=== PATIENT | male | born 1940 | race Caucasian/White ===

== ENCOUNTER → 2017-12-19 | Outpatient (CLI) | payer OTHER, BC ==
--- NOTE | 2017-12-19 15:39 | CT ---
HISTORY: Abnormal weight loss Study: CT abdomen and pelvis without contrast Comparison: None Technique: Multiple axial images of the abdomen and pelvis were obtained from the lung bases to the pubic symphy sis without the administration of IV contrast. Dose reduction techniques including automated exposur e control (AEC) and adjustment of mA and kV were utilized. Findings: Subsegmental atelectasis, scarring, and pleural calcifications are noted within the lung bases. The l iver, spleen, pancreas, adrenals, and kidneys are grossly unremarkable in appearance given the limita tions of this noncontrast exam. No CT evidence of hydronephrosis is identified. Evaluation of the sto mach, small bowel, and colon is limited without oral contrast. A tubular structure felt to represent the appendix within the right lower quadrant is grossly unremarkable. Scattered diverticula are seen within the descending and sigmoid colon. Small bilateral inguinal hernias containing fat are demonstr ated. The prostate is somewhat prominent heterogeneous in appearance and compresses along the posteri or inferior margin of the urinary bladder. The urinary bladder is otherwise grossly unremarkable. Deg enerative changes of the visualized spine are noted. IMPRESSION: Diverticulosis. Other findings as noted above. Reported By:
--- NOTE | 2017-12-19 15:39 | CT ---
HISTORY: COPD, abnormal weight loss Study: CT chest without contrast Comparison: None Technique: Multiple axial images of the chest were obtained from the thoracic inlet to the upper abdo men without the administration of IV contrast. Dose reduction techniques including automated exposure control (AEC) and adjustment of mA and kV were utilized. Findings: Scattered subcentimeter lymph nodes as measured across their short axis are seen within the mediastin um. Evaluation of the mediastinum, hilar regions, and vascular structures is limited without IV contr ast. There is no significant pericardial effusion observed. Atherosclerotic changes are seen within the visualized coronary artery is and aorta. Biapical scarring is noted. Pleural calcifications are seen within the upper and lower lobes bilaterally and may reflect prior exposure to asbestos. Correla te clinically Subsegmental atelectasis and/or scarring are seen within the right middle lobe, lingula , and both lower lobes. Otherwise no CT evidence of focal consolidation, pneumothorax, or pleural eff usion is identified. IMPRESSION: 1. Scattered areas of atelectasis, scarring, and pleural calcification without evidence of focal con solidation. Reported By:
== END | disposition home or self-care (01) | DRG 641 ==
LOC: RAD 13:57
PROVIDERS: ATTEND Internal Medicine
DX: R63.4 Abnormal weight loss (principal); J98.11 Atelectasis; J94.8 Other specified pleural conditions; J44.9 Chronic obstructive pulmonary disease, unspecified; K57.30 Diverticulosis of large intestine without perforation or abscess without bleeding
CPT/HCPCS: 71250; 74176

== ENCOUNTER 2019-06-04 11:00 | Inpatient (IN) ==
[2019-06-04] MEDS ORDERED: CATAPRES TAB 0.2 MG PO ONE (12:32)
[2019-06-04] MEDS ORDERED: ZOFRAN INJ 4 MG VIAL IVP ONE (12:43)
[2019-06-04] MEDS ORDERED: PROTONIX INJ 40 MG VIAL IVP ONE (12:43)
[2019-06-04] MEDS ORDERED: NS 500 ML IV 500 ML IV ONE (12:43)
[2019-06-04] MEDS ORDERED: ZOFRAN INJ 4 MG VIAL ONE (12:53)
[2019-06-04] MEDS ORDERED: PROTONIX INJ 40 MG VIAL ONE (12:53)
[2019-06-04] MEDS ORDERED: CATAPRES TAB 0.2 MG ONE (12:53)
[2019-06-04] MEDS ORDERED: NS 500 ML IV 500 ML ONE (12:54)
[2019-06-04 12:58] LABS: BASOPHILS % (AUTO) 0.4 % (0.2-1.0); EOSINOPHILS % (AUTO) 0.1 % (0.9-2.9); HEMATOCRIT 43.2 % (42.0-54.0); HEMOGLOBIN 14.7 g/dL (13.5-18.0); LYMPHOCYTES # (AUTO) 0.7 X10^3/uL (1.3-2.9); LYMPHOCYTES % (AUTO) 6.2 % (21.0-51.0); MEAN CORPUSCULAR HEMOGLOBIN 32.4 pg (27.0-34.0); MEAN CORPUSCULAR HGB CONC 34.1 g/dL (33.0-35.0); MEAN PLATELET VOLUME 8.2 fL (7.4-11.0); MONOCYTES # (AUTO) 0.7 x10^3/uL (0.3-0.8); MONOCYTES % (AUTO) 6.1 % (0.0-13.0); NEUTROPHILS # (AUTO) 10.5 x10^3/uL (2.2-4.8); NEUTROPHILS % (AUTO) 87.2 % (42.0-75.0); PLATELET COUNT 338 X10^3/uL (150.0-450.0); RED BLOOD COUNT 4.55 X10^6/uL (4.7-6.0)
--- NOTE | 2019-06-04 13:34 | DR.GENAD ---
HPI Time Seen Time Seen by Provider: 06/04/19 12:32 PCP Primary Care Physician: DR FOFANA Complaint/Symptoms Chief Complaint Doctors Comments: pt presented for fall and confusion. Pt was reported by family last night to be his normal self. he lives with his and uses a walker/cane for assistance. His reports he sleeps in separate room and this morning was found on the floor. Pt is unsure how he got on the floor but thinks he slipped getting out of bed. Denies any CP or SOB. he has COPD and wears home O2 2L NC. He reports having abdominal pain with reflux, back pain, nausea and left pelvic pain. he had prior lt hip arthroplasty. Pt currently on ASA. he has not taken his home BP medications today. Chief Complaint:: PT'S DAUGHTER STATES THAT WHEN HER MOTHER CHECKED ON PT THIS MORNING SHE FOUND HIM IN THE FLOOR CONFUSED. UNSURE OF WHEN OR IF THE PT FELL. CURRENTLY THE PT DENIES PAIN AND IS ORIENTED TO PERSON AND PLACE BUT CONFUSED TO WHY HE IS HERE Nurses notes reviewed Nurses Notes Review: Yes Source History Provided: Patient Mode of Arrival Mode of Arrival: Wheelchair Timing Onset of Chief Complaint: 06/04/19 Came on: On Awakening Duration Duration: Intermittent Duration: Days (1) Severity Severity: Mild Modifying Factors Worsens:: nothing Improves:: nothing Associated Signs and Symptoms Associated Signs and Symptoms: abd pain, back pian, pelvic painabd pain, back pian, pelvic pain PMH PMH Past Medical History: Yes Past Medical History: Coronary Artery Disease, Diabetes, Hypertension and Hypothyroidism Past Medical History Comment: ABESTOSIS Past Surgical History: Yes Surgical History: Angioplasty/Stents, CABG/Valve Surgery and Ortho Surgery Family History History of Family Medical Conditions: No (UNKNOWN) Family Medical History: Diabetes Mellitus, Cancer, [place], Coronary Artery Disease and Hypertension Social History Does patient currently use any type of tobacco product: No Have you used tobacco products in the last 12 months: No Type of Tobacco Use: None Does any household member use tobacco: No Alcohol Use: None Do you use any recreational Drugs:: No Lives With: Spouse Lives Where: Home infectious screening In the last 2 months have you had wt loss of >10#?: NO Have you had fever, night sweats or hemotysis?: No Have you traveled outside the country in the last 6 months?: No Isolation: Standard ROS Review of Systems Constitutional: negative Chills, Fever, Weakness and Loss of Appetite Eyes: negative Blurred Vision ENTM: negative Nose Congestion Respiratoy: negative Short of Breath Cardiovascular: negative Chest Pain and Edema Gastrointestinal/Abdominal: Abdominal Pain; negative Nausea and Vomiting Genitourinary: negative Dysuria and Hematuria Neurological: negative Weakness and Speech Problem Musculoskeletal: Back Pain and Pelvis Hematologic/Lymphatic: Easy Bruising Endocrine: negative Unexplained Weight Gain, Unexplained Weight Loss and Decreased Appetite Psychiatric: negative Depression and Hallucinations All Other Systems: Reviewed and Negative PE Vital Signs Vitals: Temperature 97.9 F Pulse Rate 60 Respiratory Rate 20 Blood Pressure [Right Arm] 190/86 Blood Pressure 226/89 O2 Sat by Pulse Oximetry 91 General Limitations: No Limitations General Appearance: Alert and In No Apparent Distress Head Head Exam: Normal Inspection, Atraumatic and Normocephalic Eyes Eye exam: Normal Appearance, PERRL and EOMI; negative Scleral Icterus ENT ENT Exam: Normal Exam, Normal Oropharynx and Mucous Membranes Moist External Ear Exam: Other (artie hearing aid) Nose Exam: Normal Nose Exam Mouth Exam: Normal Inspection Throat Exam: Normal Inspection Neck Neck Exam: Normal Inspection and Full ROM; negative Tenderness, Meningismus and Lymphadenopathy Respiratory Respiratory Exam: Normal Lung Sounds Bilat and Other (on 2L NC ) Respiratory Exam: Bilateral: Clear to Auscultation Cardiovascular Cardiovascular Exam: Regular Rate, Normal Rhythm and Normal Heart Sounds Abdominal Exam Abdominal Exam: Normal Inspection, Normal Bowel Sounds, Soft and Tenderness; negative Distention and Pulsatile Mass Abdominal Tenderness: Epigastrium Extremities Extremities Exam: Normal Inspection, Tenderness (left pelvic) and Normal Capillary Refill; negative Edema and Calf Tenderness Back Back Exam: Normal Inspection; negative Tenderness and Vertebral Tenderness Neurologic Neurological Exam: Alert, Oriented X3, Normal Gait and Reflexes Normal; negative Motor Sensory Deficit Psychiatric Psychiatric Exam: Normal Affect and Normal Mood Skin Skin Exam: Warm, Dry, Intact and Normal Color Front/Back of Body, Lg ([place]): 1. abrasion MDM Additional Information Additional Information Obtained From: Old Records Differential Diagnosis Differential Diagnosis: AAA, abd pain, fall, CHI, ICH, pelvic fracture, reflux, gastritis COURSE Reevaluation 1st: Unchanged (BP still elevated. Will given Hydralazine. Pt would like to try prune juice for constipation. Will continue IVF hydration. Awaiting retun call from Dr. Fofana PCP.) 2nd: Improved (BP improved. Still has not voided. Will i/o cath. ) Consultation Consultation Comments: 15:[address] Fofana and will admit and see in the hospital. Education/Counseling Education/Counseling: Patient, Family, Education and Counseling Educated On: Treatment, Diagnosis, Prognosis and Needs for Follow Up ROR Labs Reviewed Laboratory Results Reviewed?: Yes Result Diagrams: 06/04/19 12:05 06/04/19 13:32 Laboratory: WBC 12.0 X10^3/uL (3.6-10.0) H 06/04/19 12:05 RBC 4.55 X10^6/uL (4.7-6.0) L 06/04/19 12:05 Hgb 14.7 g/dL (13.5-18.0) 06/04/19 12:05 Hct 43.2 % (42.0-54.0) 06/04/19 12:05 MCV 95.0 fL (80.0-100.0) 06/04/19 12:05 MCH 32.4 pg (27.0-34.0) 06/04/19 12:05 MCHC 34.1 g/dL (33.0-35.0) 06/04/19 12:05 RDW 13.0 % (11.6-16.5) 06/04/19 12:05 Plt Count 338 X10^3/uL (150.0-450.0) 06/04/19 12:05 MPV 8.2 fL (7.4-11.0) 06/04/19 12:05 Neut % (Auto) 87.2 % (42.0-75.0) H 06/04/19 12:05 Lymph % (Auto) 6.2 % (21.0-51.0) L 06/04/19 12:05 [place] % (Auto) 6.1 % (0.0-13.0) 06/04/19 12:05 Eos % (Auto) 0.1 % (0.9-2.9) L 06/04/19 12:05 Baso % (Auto) 0.4 % (0.2-1.0) 06/04/19 12:05 Neut # (Auto) 10.5 x10^3/uL (2.2-4.8) H 06/04/19 12:05 Lymph # (Auto) 0.7 X10^3/uL (1.3-2.9) L 06/04/19 12:05 [place] # (Auto) 0.7 x10^3/uL (0.3-0.8) 06/04/19 12:05 Eos # (Auto) 0.0 x10^3/uL (0.0-0.2) 06/04/19 12:05 Baso # (Auto) 0.0 X10^3/uL (0.0-0.1) 06/04/19 12:05 Absolute Nucleated RBC 0.0 /100WBC 06/04/19 12:05 PT 14.2 SECONDS (11.8-14.3) 06/04/19 13:32 INR Target Range - 06/04/19 13:32 INR 1.14 (0.8-1.3) 06/04/19 13:32 Sodium 136 mmol/L (136-145) 06/04/19 13:32 Corrected Sodium 142 mmol/L (136-145) 06/04/19 13:32 Potassium 5.2 mmol/L (3.5-5.1) H 06/04/19 13:32 Chloride 102 mmol/L (98-107) 06/04/19 13:32 Carbon Dioxide 21.7 mmol/L (21-32) 06/04/19 13:32 BUN 37 mg/dL (7-18) H 06/04/19 13:32 Creatinine 2.37 mg/dL (0.70-1.30) H 06/04/19 13:32 Est GFR (MDRD) Af Amer 34 (>60) L 06/04/19 13:32 Est GFR (MDRD) Non-Af 28 (>60) L 06/04/19 13:32 Glucose 335 mg/dL (65-99) H 06/04/19 13:32 Calcium 8.4 mg/dL (8.5-10.1) L 06/04/19 13:32 Creatine Kinase 182 Units/L (39-308) 06/04/19 13:32 Troponin I < 0.02 ng/mL (0-1.5) 06/04/19 13:32 Acetone, Semi-Quant Negative (NEGATIVE) 06/04/19 13:32 Other Results Comments: WBC 12k, K 5.2 Cr 2.37 BUN 37 glu 335, Trop negative CPK 182, acetone neg CT head: naf XRAY XRAY Interpreted by: Radiologist and Self XRAY Findings: Abd series: chest NAF, constipation EKG Rate: 60 [place]: LAD Rhythm: NSR Block: None Hypertrophy: None ST: Nonsp Opioid Opioid Risk Tool Age ([place] box if 16-45): No History of Preadolescent Sexual Abuse: No Total: 0 Total Score Risk Category: Low Risk Copyright: [facility] predicting aberrant behaviors Diagnosis Discharge Problem: Acute kidney injury superimposed on CKD, Hypertensive urgency Hyperglycemia due to type 2 diabetes mellitus Qualifiers: Diabetes mellitus prison insulin use: with intermission coordinator use Qualified Code(s): E11.65 - Type 2 diabetes mellitus with hyperglycemia Fall Qualifiers: Encounter type: initial encounter Qualified Code(s): W19.XXXA - Unspecified fall, initial encounter Constipation Qualifiers: Constipation type: unspecified constipation type Qualified Code(s): K59.00 - Constipation, unspecified Instructions Forms: Excuse From Work ADDITIONAL NOTES Additional Notes Additional Notes: I have personally reviewed your medications, lab results, imaging and time was spent discussion results. Patient educated on their health issue. They verbalized their understanding and agreed with plan of care. Condition: Stable Disposition: admit
[2019-06-04] MEDS ORDERED: LEVSIN/MAALOX/LIDOC VISC PO ONE (13:40)
[2019-06-04] MEDS ORDERED: LEVSIN/MAALOX/LIDOC VISC ONE (13:42)
--- NOTE | 2019-06-04 13:48 | CT ---
History: Fall Study: CT head without contrast. Sagittal and coronal reformations were provided. Comparison: MRI brain dated November 07, 2015 Findings: The ventricles and sulci are moderately severely enlarged, and unchanged, without mass effect. There is an old unchanged right basal ganglial putamen lacunar infarct. There is no intracranial hemorrhage or mass or edema. There is mild to moderate diffuse patchy periventricular white matter low attenuation. The calvarium is intact. The paranasal sinuses are grossly clear. Impression: 1. 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 No acute intracranial disease demonstrated 3. Mild to moderate diffuse periventricular white matter small-vessel disease. Reported By:
--- NOTE | 2019-06-04 13:49 | RAD ---
History: Fall Study: AP pelvis Comparison: September 30, 2018 Findings: There is a left hip prosthesis well-seated. No acute fracture is demonstrated. The right hip is unremarkable. There is no lytic or blastic lesion. The bony pelvis is intact. Impression: No acute disease Reported By:
--- NOTE | 2019-06-04 13:53 | RAD ---
History: Fall and abdominal pain Study: Acute abdominal series Comparison: September 2018 Findings: There is limited inspiration of grossly clear lungs. There is apical pleural calcification on the left. The heart size is prominent status post CABG. The bowel gas pattern is unremarkable except for a large amount of formed stool throughout the entire colon to the rectum. There is a partially visualized left hip prosthesis. No urinary tract calcification is demonstrated. There is no free air. Impression: Probable constipation Reported By:
[2019-06-04 13:55] LABS: BLOOD UREA NITROGEN 37 mg/dL (7-18); CALCIUM 8.4 mg/dL (8.5-10.1); CARBON DIOXIDE 21.7 mmol/L (21-32); CHLORIDE 102 mmol/L (98-107); COR NA(FOR HYPERGLY) 142 mmol/L (136-145); CREATINE KINASE 182 Units/L (39-308); CREATININE 2.37 mg/dL (0.70-1.30); SODIUM 136 mmol/L (136-145); TROPONIN I < 0.02 ng/mL (0-1.5); eGFR NON BLACK RACES 28 (>60)
[2019-06-04] MEDS ORDERED: NS 1000 ML 1,000 ML IV ONE (14:04)
[2019-06-04] MEDS ORDERED: FLEET ENEMA ADULT PR ONE (14:05)
[2019-06-04] MEDS ORDERED: APRESOLINE INJ 20 MG VIAL IVP ONE (14:05)
[2019-06-04] MEDS ORDERED: HumuLIN R IV ONE (14:05)
[2019-06-04] MEDS ORDERED: APRESOLINE INJ 20 MG VIAL ONE (14:13)
[2019-06-04] MEDS ORDERED: HumuLIN R ONE ×2 (14:14→17:30)
[2019-06-04] MEDS ORDERED: NS 1000 ML 1,000 ML ONE (15:46)
[2019-06-04] MEDS: NS 1000 ML 1,000 ML IV SCH (17:24)
[2019-06-04] MEDS ORDERED: HumuLIN R SUBCUT PRN (17:25)
[2019-06-04 17:49] VITALS: BMI 24.7
[2019-06-04 18:27] LABS: BILIRUBIN,URINE NEGATIVE (NEGATIVE); BLOOD/HEMOGLOBIN,URINE 3+ (NEGATIVE); GLUCOSE, URINE 3+ (NEGATIVE); KETONES,URINE NEGATIVE (NEGATIVE); LEUKOCYTE ESTERASE ,URINE NEGATIVE (NEGATIVE); NITRITES,URINE NEGATIVE (NEGATIVE); PROTEIN,URINE 4+ (NEGATIVE); UROBILINOGEN,URINE NORMAL (NORMAL)
[2019-06-04 18:28] LABS: APPEARANCE,URINE HAZY (CLEAR); COLOR,URINE YELLOW (YELLOW)
[2019-06-04 18:36] LABS: AMORPHOUS SEDIMENT,UR 1+ /HPF (NEGATIVE); BACTERIA,URINE TRACE /HPF (NEGATIVE); HYALINE CASTS, URINE FEW /LPF (NEGATIVE); MUCUS,URINE FEW /HPF (NEGATIVE); SQUAMOUS EPITHELIAL CELL,UR FEW /HPF (NEGATIVE)
[2019-06-04] MEDS ORDERED: MILK OF MAGNESIA PO PRN (19:49)
[2019-06-04] MEDS ORDERED: COLACE CAP 100 MG PO PRN (19:49)
[2019-06-04] MEDS ORDERED: SNACK - Diabetic Appropriate PO SCH ×2 (20:00)
[2019-06-04] MEDS: DUONEB 0.5 MG/3 MG IN SCH (20:29)
[2019-06-04] MEDS ORDERED: ROBITUSSIN DM PO PRN (20:50)
[2019-06-04] MEDS: COREG TAB 6.25 MG PO SCH (20:53)
[2019-06-04] MEDS: HumuLIN R SUBCUT PRN (22:00)
[2019-06-05] MEDS: DUONEB 0.5 MG/3 MG IN SCH ×6 (05:00→22:15)
[2019-06-05 05:04] LABS: BASOPHILS # (AUTO) 0.1 X10^3/uL (0.0-0.1); BASOPHILS % (AUTO) 0.7 % (0.2-1.0); EOSINOPHILS # (AUTO) 0.8 x10^3/uL (0.0-0.2); EOSINOPHILS % (AUTO) 7.9 % (0.9-2.9); HEMATOCRIT 37.2 % (42.0-54.0); LYMPHOCYTES # (AUTO) 1.1 X10^3/uL (1.3-2.9); LYMPHOCYTES % (AUTO) 10.6 % (21.0-51.0); MEAN CORPUSCULAR HEMOGLOBIN 32.5 pg (27.0-34.0); MEAN CORPUSCULAR HGB CONC 34.2 g/dL (33.0-35.0); MEAN PLATELET VOLUME 8.1 fL (7.4-11.0); MONOCYTES # (AUTO) 1.2 x10^3/uL (0.3-0.8); MONOCYTES % (AUTO) 11.2 % (0.0-13.0); NEUTROPHILS # (AUTO) 7.3 x10^3/uL (2.2-4.8); NEUTROPHILS % (AUTO) 69.6 % (42.0-75.0); PLATELET COUNT 269 X10^3/uL (150.0-450.0); RED BLOOD COUNT 3.92 X10^6/uL (4.7-6.0); RED CELL DISTRIBUTION WIDTH 13.2 % (11.6-16.5); WHITE BLOOD COUNT 10.5 X10^3/uL (3.6-10.0)
[2019-06-05 05:08] LABS: BLOOD UREA NITROGEN 33 mg/dL (7-18); CALCIUM 7.9 mg/dL (8.5-10.1); CARBON DIOXIDE 22.5 mmol/L (21-32); CHLORIDE 108 mmol/L (98-107); CREATININE 2.22 mg/dL (0.70-1.30); SODIUM 141 mmol/L (136-145); eGFR NON BLACK RACES 30 (>60)
[2019-06-05 05:11] LABS: HEMOGLOBIN 12.7 g/dL (13.5-18.0)
[2019-06-05] MEDS: NS 1000 ML 1,000 ML IV SCH ×2 (06:06→21:08)
[2019-06-05] MEDS: SNACK - Diabetic Appropriate PO SCH ×2 (07:12→20:28)
[2019-06-05] MEDS: MILK OF MAGNESIA PO SCH ×4 (08:48→21:08)
[2019-06-05] MEDS: CRESTOR TAB 10 MG PO SCH (08:48)
[2019-06-05] MEDS: ZETIA TAB 10 MG PO SCH (08:49)
[2019-06-05] MEDS: SYNTHROID 50 mcg TAB PO SCH (08:49)
[2019-06-05] MEDS: SINGULAIR TAB 10 MG PO SCH (08:49)
[2019-06-05] MEDS: LASIX PO SCH (08:49)
[2019-06-05] MEDS: COREG TAB 6.25 MG PO SCH ×2 (08:50→21:08)
[2019-06-05] MEDS: COLACE CAP 100 MG PO SCH ×2 (08:50→21:08)
[2019-06-05] MEDS: MIRALAX POWDER (1 DOSE 17 G) PO SCH (08:51)
[2019-06-05] MEDS: PLAVIX PO SCH (08:57)
[2019-06-05] MEDS ORDERED: PHARMACY CONSULT - DOSE _____ XX SCH (09:00)
--- NOTE | 2019-06-05 09:04 | US ---
History: Chronic kidney disease and acute kidney injury Study: Ultrasound of the kidneys Comparison: None Findings: The right kidney measures 8.97 x 4.38 x 5.09 cm with cortical thickness of 1.39 cm. The left kidney measures 8.1 x 6.28 x 4.89 cm with cortical thickness of 1.32 cm. There is no hydronephrosis or renal mass. The urinary bladder is unremarkable. The prostate is not appear to be enlarged. There is mildly increased diffuse echogenicity of renal cortex. Impression: Echogenic renal cortex compatible with a diffuse renal cortical disease. Reported By:
[2019-06-05] MEDS: ZyrTEC TAB 10 MG PO SCH (10:56)
[2019-06-05] MEDS: TYLENOL 325 MG TAB PO PRN (16:01)
[2019-06-05] MEDS: HumuLIN R SUBCUT PRN (16:44)
[2019-06-05] MEDS: LOVENOX INJ 30 MG SYR SC SCH (21:08)
[2019-06-06 05:17] LABS: BASOPHILS # (AUTO) 0.1 X10^3/uL (0.0-0.1); BASOPHILS % (AUTO) 0.7 % (0.2-1.0); EOSINOPHILS % (AUTO) 11.3 % (0.9-2.9); HEMATOCRIT 38.2 % (42.0-54.0); HEMOGLOBIN 13.1 g/dL (13.5-18.0); LYMPHOCYTES % (AUTO) 11.1 % (21.0-51.0); MEAN CORPUSCULAR HEMOGLOBIN 32.4 pg (27.0-34.0); MEAN CORPUSCULAR HGB CONC 34.2 g/dL (33.0-35.0); MEAN CORPUSCULAR VOLUME 94.8 fL (80.0-100.0); MEAN PLATELET VOLUME 7.9 fL (7.4-11.0); MONOCYTES # (AUTO) 0.8 x10^3/uL (0.3-0.8); MONOCYTES % (AUTO) 9.2 % (0.0-13.0); NEUTROPHILS # (AUTO) 5.8 x10^3/uL (2.2-4.8); NEUTROPHILS % (AUTO) 67.7 % (42.0-75.0); PLATELET COUNT 234 X10^3/uL (150.0-450.0); RED BLOOD COUNT 4.03 X10^6/uL (4.7-6.0); RED CELL DISTRIBUTION WIDTH 13.1 % (11.6-16.5); WHITE BLOOD COUNT 8.5 X10^3/uL (3.6-10.0)
[2019-06-06 05:29] LABS: ALBUMIN 2.5 g/dL (3.4-5.0); CARBON DIOXIDE 24.8 mmol/L (21-32); COR CA(FOR HYPOALB) 9.2 mg/dL (8.5-10.1); CREATININE 1.99 mg/dL (0.70-1.30)
[2019-06-06] MEDS: DUONEB 0.5 MG/3 MG IN SCH ×4 (05:35→21:12)
[2019-06-06] MEDS: TYLENOL 325 MG TAB PO PRN ×2 (05:59→17:30)
[2019-06-06] MEDS: ZyrTEC TAB 10 MG PO SCH (09:20)
[2019-06-06] MEDS: CRESTOR TAB 10 MG PO SCH (09:20)
[2019-06-06] MEDS: LASIX PO SCH (09:21)
[2019-06-06] MEDS: COREG TAB 6.25 MG PO SCH ×2 (09:22→21:35)
[2019-06-06] MEDS: SYNTHROID 50 mcg TAB PO SCH (09:23)
[2019-06-06] MEDS: COLACE CAP 100 MG PO SCH ×2 (09:23→21:34)
[2019-06-06] MEDS: PLAVIX PO SCH (09:24)
[2019-06-06] MEDS: SINGULAIR TAB 10 MG PO SCH (09:24)
[2019-06-06] MEDS: ZETIA TAB 10 MG PO SCH (09:25)
[2019-06-06] MEDS: MILK OF MAGNESIA PO SCH ×4 (09:27→21:37)
[2019-06-06] MEDS: MIRALAX POWDER (1 DOSE 17 G) PO SCH (09:27)
[2019-06-06] MEDS: NS 1000 ML 1,000 ML IV SCH ×2 (09:35→23:30)
[2019-06-06] MEDS: HumuLIN R SUBCUT PRN (11:47)
[2019-06-06] MEDS: SNACK - Diabetic Appropriate PO SCH (21:32)
[2019-06-06] MEDS: LOVENOX INJ 30 MG SYR SC SCH (21:33)
[2019-06-07] MEDS: TYLENOL 325 MG TAB PO PRN (01:56)
[2019-06-07] MEDS: NS 1000 ML 1,000 ML IV SCH ×3 (01:57→14:48)
[2019-06-07 05:04] LABS: BASOPHILS % (AUTO) 0.6 % (0.2-1.0); EOSINOPHILS # (AUTO) 0.8 x10^3/uL (0.0-0.2); EOSINOPHILS % (AUTO) 12.9 % (0.9-2.9); HEMOGLOBIN 12.8 g/dL (13.5-18.0); LYMPHOCYTES # (AUTO) 1.1 X10^3/uL (1.3-2.9); LYMPHOCYTES % (AUTO) 16.6 % (21.0-51.0); MEAN CORPUSCULAR HEMOGLOBIN 32.6 pg (27.0-34.0); MEAN CORPUSCULAR HGB CONC 34.5 g/dL (33.0-35.0); MEAN CORPUSCULAR VOLUME 94.6 fL (80.0-100.0); MEAN PLATELET VOLUME 8.1 fL (7.4-11.0); MONOCYTES # (AUTO) 0.7 x10^3/uL (0.3-0.8); MONOCYTES % (AUTO) 11.3 % (0.0-13.0); NEUTROPHILS # (AUTO) 3.8 x10^3/uL (2.2-4.8); NEUTROPHILS % (AUTO) 58.6 % (42.0-75.0); PLATELET COUNT 217 X10^3/uL (150.0-450.0); RED BLOOD COUNT 3.91 X10^6/uL (4.7-6.0); RED CELL DISTRIBUTION WIDTH 12.8 % (11.6-16.5); WHITE BLOOD COUNT 6.4 X10^3/uL (3.6-10.0)
[2019-06-07 05:16] LABS: ALBUMIN 2.3 g/dL (3.4-5.0); CALCIUM 7.9 mg/dL (8.5-10.1); CARBON DIOXIDE 23.9 mmol/L (21-32); COR CA(FOR HYPOALB) 9.3 mg/dL (8.5-10.1); TOTAL PROTEIN 5.9 g/dL (6.4-8.2)
[2019-06-07] MEDS: DUONEB 0.5 MG/3 MG IN SCH ×3 (05:25→21:16)
[2019-06-07] MEDS: COLACE CAP 100 MG PO SCH ×2 (08:22→21:14)
[2019-06-07] MEDS: ZyrTEC TAB 10 MG PO SCH (08:23)
[2019-06-07] MEDS: COREG TAB 6.25 MG PO SCH ×2 (08:23→21:14)
[2019-06-07] MEDS: CRESTOR TAB 10 MG PO SCH (08:23)
[2019-06-07] MEDS: SYNTHROID 50 mcg TAB PO SCH (08:23)
[2019-06-07] MEDS: SINGULAIR TAB 10 MG PO SCH (08:24)
[2019-06-07] MEDS: LASIX PO SCH (08:24)
[2019-06-07] MEDS: ZETIA TAB 10 MG PO SCH (08:24)
[2019-06-07] MEDS: PLAVIX PO SCH (08:28)
[2019-06-07] MEDS: MIRALAX POWDER (1 DOSE 17 G) PO SCH (08:29)
[2019-06-07] MEDS: MILK OF MAGNESIA PO SCH ×4 (08:29→21:19)
[2019-06-07 09:33] LABS: CKMB % 1.7 % (<4); CREATINE KINASE MB 2.1 ng/mL (0-4.0); TROPONIN I 0.02 ng/mL (0-1.5)
[2019-06-07] MEDS ORDERED: MAALOX or MYLANTA PO PRN (12:16)
[2019-06-07] MEDS ORDERED: MAALOX or MYLANTA ONE (12:20)
--- NOTE | 2019-06-07 12:37 | DR.H&P ---
H&P - History & Physical for Day of: H&P Date: 06/04/19 - Chief Complaint Chief Complaint: AMS, FALLS, WEAKNESS - History of Present Illness History of Present Illness: IS A 78 YEAR OLD PATIENT OF OURS WHO PRESENTED TO THE ER WITH REPORTS OF ALTERED MENTAL STATUS FOLLOWING A FALL. PATIENTS SPOUSE REPORTS THAT SHE IS UNSURE OF WHEN THE FALL TOOK PLACE. SHE FOUND HIM IN THE FLOOR UPON AWAKENING THIS MORNING. HE WAS LAST SEEN NORMAL BEFORE BED LAST NIGHT. PATIENT DENIES CHEST PAIN OR SHORTNESS OF BREATH. HE HAS A HISTORY OF COPD AND AN EXTENSIVE CARDIAC HISTORY. HE WEARS OXYGEN VIA NC AT 2L/MIN AT HOME. HE DOES REPORT ABDOMINAL PAIN WITH REFLUX, BACK PAIN, NAUSEA, AND LEFT PELVIC PAIN. ON ARRIVAL, VITALS WERE 97.9-60-18-97%-232/98. LABS WERE OBTAINED. ABNORMAL LAB VALUES INCLUDE THE FOLLOWING: WBC 12.0, RBC 4.55, POTASSIUM 5.2, BUN 37, CREATININE 2.37, GLUCOSE 335, CALCIUM 8.4. 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 No acute intracranial disease demonstrated. Mild to moderate diffuse periventricular white matter small-vessel disease. AN ABDOMEN XRAY WAS OBTAINED AND REVEALED: Probable constipation. A PELVIS XRAY WAS OBTAINED AND REVEALED: NO ACUTE DISEASE. EKG REVEALED: SINUS RHYTHM WITH HR 60. HE WAS GIVEN HUMULIN R 10 UNITS, APRESOLINE 10MG IV, A NORMAL SALINE 500 ML BOLUS THEN A NORMAL SALINE 1 LITER BOLUS, GI COCKTAIL 30ML PO X 1, ZOFRAN 4MG IV X 1, PROTONIX 40MG IV X 1, AND CATAPRES 0.2MG PO X 1. BLOOD PRESSURE DECREASED TO 134/60. HE WAS ADMITTED FOR FURTHER EVALUATION AND TREATMENT OF HYPERTENSIVE URGENCY, ACUTE ON CHRONIC KIDNEY FAILURE, CONSTIPATION, AND HYPERGLYCEMIA. HE WAS STARTED ON NORMAL SALINE AT 75ML/HR, HUMULIN R SLIDIDNG SCALE, RESPIRATORY TREATMENT,S AND HOME MEDICATIONS WERE RESUMED. WE PLAN TO FOLLOW UP WITH AM LABS AND CONTINUE TO MONITOR. - Past Medical History Past Medical History: Coronary Artery Disease, Hypertension, Diabetes, Hypothyroidism - Past Surgical History Surgical History: Angioplasty/Stents, CABG/Valve Surgery, Joint Replacement, Other - Family History Family Medical History: Diabetes Mellitus, Coronary Artery Disease, Heart Failure, Hypertension - Social History Does patient currently use any type of tobacco product: No Have you used tobacco products in the last 12 months: No Type of Tobacco Use: None Does any household member use tobacco: No Alcohol Use: None Drug Use: None - Medications Home Medications: hydrocodone Adverse Reaction (Verified 09/30/18 10:56) CONTINUE taking the following medications aspirin [Aspirin Low Dose] 81 mg PO ONCE 06/04/19 [History] gabapentin 300 mg PO QHS PRN 06/04/19 [History] insulin asp prt-insulin aspart [Novolog Mix 70-30 U-100 Insuln] 20 units SUBCUT TID 06/04/19 [History] levothyroxine 50 mcg PO DAILY 06/04/19 [History] - Review of Systems Constitutional: Weakness, Malaise Eyes: No Symptoms Reported ENT: No Symptoms Reported Respiratory: Shortness of Breath Cardiovascular: Light Headedness Gastrointestinal: Nausea, Constipation Genitourinary: No Symptoms Reported Musculoskeletal: See HPI (LEFT PELVIC PAIN ) Skin: No Symptoms Reported Neurological: Confusion - Physical Exam Vital Signs: Temperature 97.7 F Pulse Rate [Left Radial] 71 Pulse Rate 53 Respiratory Rate 18 Blood Pressure [Left Arm] 163/86 Blood Pressure [Right Arm] 140/66 Blood Pressure 226/89 O2 Sat by Pulse Oximetry 96 Oriented: Normal Eyes: Normal Ear: Normal Nose: Normal Throat: Normal Respiratory: Diminished Throughout Cardiovascular: Normal. 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 insulin use: with ski production supervisor use Qualified Code(s): E11.65 - Type 2 diabetes mellitus with hyperglycemia; 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 Status: Acute Plan: HUMULIN R SLIDIDNG SCALE, MONITOR OTBS, NOVOLOG 70/30 20 UNITS SC TID, CONTINUE TO MONITOR (4) Fall Qualifiers: Encounter type: initial encounter Qualified Code(s): W19.XXXA - Unspecified fall, initial encounter Status: Acute (5) Constipation Qualifiers: Constipation type: unspecified constipation type Qualified Code(s): K59.00 - Constipation, unspecified Status: Acute Plan: MILK OF MAGNESIA, COLACE, MIRALAX, CONTINUE TO MONITOR - Allergies Allergies/Adverse Reactions: Allergies Allergy/AdvReac Type Severity Reaction Status Date / Time hydrocodone AdvReac Verified 09/30/18 10:56
[2019-06-07 15:07] LABS: CKMB % 1.9 % (<4); CREATINE KINASE 101 Units/L (39-308); CREATINE KINASE MB 1.9 ng/mL (0-4.0); TROPONIN I < 0.02 ng/mL (0-1.5)
[2019-06-07] MEDS: HumuLIN R SUBCUT PRN (17:15)
[2019-06-07 21:08] LABS: CREATINE KINASE 88 Units/L (39-308); TROPONIN I < 0.02 ng/mL (0-1.5)
[2019-06-07] MEDS: SNACK - Diabetic Appropriate PO SCH (21:14)
[2019-06-07] MEDS: LOVENOX INJ 30 MG SYR SC SCH (21:15)
--- NOTE | 2019-06-07 21:22 | PCM.PROG ---
Progress Note - Progress Note for Day of Date of Exam: 06/05/19 - Subjective Subjective: WAS ADMITTED FOR HYPERTENSIVE URGENCY, ACUTE ON CHRONIC KIDNEY FAILURE, CONSTIPATION, HYPERGLYCEMIA, AND ALTERED MENTAL STATUS. TODAY, HE IS LYING IN BED WITH EYES OPEN ON MORNING ROUNDS. HE CONTINUES WITH CONFUSION AND WEAKNESS THIS MORNING. ON EXAMINATION, HEART IS REGULAR IN RATE AND RHYTHM. BILATERAL LUNGS ARE NOTED WITH DIMINISHED LUNG SOUNDS THROUGHOUT. ABDOMEN IS ROUND, SOFT, AND NOTED WITH MILD, DIFFUSE TENDERNESS. BOWEL SOUNDS ARE HYPOACTIVE. HIS VITALS THIS MORNING ARE: 97.9-59-20-95%-150/70. LABS WERE OBTAINED. ABNORMAL LAB VALUES INCLUDE THE FOLLOWING: WBC 10.5, RBC 3.92, HGB 12.7, HCT 37.2, CHLORIDE 108, BUN 33, CREATININE 2.22, GLUCOSE 63, CALCIUM 7.9. A RENAL US WAS OBTAINED THIS MORNING AND REVEALED: ECHOGENIC RENAL CORTEX COMPATIBLE WITH A DIFFUSE RENAL CORTICAL DISEASE. HE CONTINUES TO RECEIVING NORMAL SALINE AT 75ML/HR, INSULINS, AND HOME MEDICATIONS. TODAY, WE WILL START MILK OF MAGNESIA, COLACE, AND MIRALAX. OTHERWISE, WE WILL CONTINUE WITH CURRENT PLAN OF CARE TODAY. WE WILL FOLLOW UP WITH AM LABS AND CONTINUE TO MONITOR. - Past Medical Family Social History Past Med/Fam/Surg Hx: No changes since H&P Allergies: Allergies hydrocodone Adverse Reaction (Verified 09/30/18 10:56) - Review of Systems ROS: No change since H&P - Vital Signs and I&O's Vital Signs: Temperature 98.1 F Pulse Rate [Left Radial] 59 Pulse Rate 59 Respiratory Rate 20 Blood Pressure [Left Arm] 163/86 Blood Pressure [Right Arm] 152/76 Blood Pressure 226/89 O2 Sat by Pulse Oximetry 95 Intake and Output: Intake & Output 06/05/19 06/06/19 06/07/19 06/08/19 11:59 11:59 11:59 11:59 Intake Total 729 / 729 3006 / 3006 3700 / 3700 1320 / 1320 Output Total 750 / 750 425 / 425 Balance - / - 3006 / 3006 3700 / 3700 895 / 895 - Physical Exam Oriented: Normal Eyes: Normal Ear: Normal Nose: Normal Throat: Normal Cardiovascular: Normal. negative: S3, S4, Murmur : Normal Auscultation: Bowel Sounds: Normal Palpation: Normal Tenderness: Normal Skin: Normal Musculoskeletal: Left, Pelvis, Tender Psychiatric: Normal Mood Description: Calm Affect: Normal Speech Pattern: Clear, Appropriate - Laboratory and Diagnostics Result Diagrams: 06/07/19 04:32 06/07/19 04:32 Labs: Laboratory WBC 6.4 X10^3/uL (3.6-10.0) 06/07/19 04:32 RBC 3.91 X10^6/uL (4.7-6.0) L 06/07/19 04:32 Hgb 12.8 g/dL (13.5-18.0) L 06/07/19 04:32 Hct 37.0 % (42.0-54.0) L 06/07/19 04:32 MCV 94.6 fL (80.0-100.0) 06/07/19 04:32 MCH 32.6 pg (27.0-34.0) 06/07/19 04:32 MCHC 34.5 g/dL (33.0-35.0) 06/07/19 04:32 RDW 12.8 % (11.6-16.5) 06/07/19 04:32 Plt Count 217 X10^3/uL (150.0-450.0) 06/07/19 04:32 MPV 8.1 fL (7.4-11.0) 06/07/19 04:32 Neut % (Auto) 58.6 % (42.0-75.0) 06/07/19 04:32 Lymph % (Auto) 16.6 % (21.0-51.0) L 06/07/19 04:32 [place] % (Auto) 11.3 % (0.0-13.0) 06/07/19 04:32 Eos % (Auto) 12.9 % (0.9-2.9) H 06/07/19 04:32 Baso % (Auto) 0.6 % (0.2-1.0) 06/07/19 04:32 Neut # (Auto) 3.8 x10^3/uL (2.2-4.8) 06/07/19 04:32 Lymph # (Auto) 1.1 X10^3/uL (1.3-2.9) L 06/07/19 04:32 [place] # (Auto) 0.7 x10^3/uL (0.3-0.8) 06/07/19 04:32 Eos # (Auto) 0.8 x10^3/uL (0.0-0.2) H 06/07/19 04:32 Baso # (Auto) 0.0 X10^3/uL (0.0-0.1) 06/07/19 04:32 Absolute Nucleated RBC 0.1 /100WBC 06/07/19 04:32 PT 14.2 SECONDS (11.8-14.3) 06/04/19 13:32 INR Target Range - 06/04/19 13:32 INR 1.14 (0.8-1.3) 06/04/19 13:32 Sodium 139 mmol/L (136-145) 06/07/19 04:32 Corrected Sodium 140 mmol/L (136-145) 06/07/19 04:32 Potassium 4.8 mmol/L (3.5-5.1) 06/07/19 04:32 Chloride 107 mmol/L (98-107) 06/07/19 04:32 Carbon Dioxide 23.9 mmol/L (21-32) 06/07/19 04:32 BUN 23 mg/dL (7-18) H 06/07/19 04:32 Creatinine 2.00 mg/dL (0.70-1.30) H 06/07/19 04:32 Est GFR (MDRD) Af Amer 42 (>60) L 06/07/19 04:32 Est GFR (MDRD) Non-Af 34 (>60) L 06/07/19 04:32 Glucose 136 mg/dL (65-99) H 06/07/19 04:32 POC Glucose (mg/dL) 265 mg/dL (65-99) H 06/06/19 11:03 Calcium 7.9 mg/dL (8.5-10.1) L 06/07/19 04:32 Corrected Calcium 9.3 mg/dL (8.5-10.1) 06/07/19 04:32 Total Bilirubin 0.20 mg/dL (0.2-1.0) 06/07/19 04:32 AST 20 Units/L (15-37) 06/07/19 04:32 ALT 18 Units/L (12-78) 06/07/19 04:32 Alkaline Phosphatase 114 Units/L (46-116) 06/07/19 04:32 Creatine Kinase 101 Units/L (39-308) 06/07/19 14:40 CK-MB (CK-2) 1.9 ng/mL (0-4.0) 06/07/19 14:40 CK/CKMB % Calc 1.9 % (<4) 06/07/19 14:40 Troponin I < 0.02 ng/mL (0-1.5) 06/07/19 14:40 Total Protein 5.9 g/dL (6.4-8.2) L 06/07/19 04:32 Albumin 2.3 g/dL (3.4-5.0) L 06/07/19 04:32 Globulin 3.6 g/dL (2.5-4.5) 06/07/19 04:32 Albumin/Globulin Ratio 0.6 Ratio (1.1-2.1) L 06/07/19 04:32 Specimen Type Clean catch urine 06/04/19 17:45 Urine Color Yellow (YELLOW) 06/04/19 17:45 Urine Appearance Hazy (CLEAR) 06/04/19 17:45 Urine pH 5.0 (5.0 - 8.0) 06/04/19 17:45 Ur Specific [place] 1.020 (1.000-1.030) 06/04/19 17:45 Urine Protein 4+ (NEGATIVE) 06/04/19 17:45 Urine Glucose (UA) 3+ (NEGATIVE) 06/04/19 17:45 Urine Ketones Negative (NEGATIVE) 06/04/19 17:45 Urine Occult Blood 3+ (NEGATIVE) 06/04/19 17:45 Urine Nitrite Negative (NEGATIVE) 06/04/19 17:45 Urine Bilirubin Negative (NEGATIVE) 06/04/19 17:45 Urine Urobilinogen Normal (NORMAL) 06/04/19 17:45 Ur Leukocyte Esterase Negative (NEGATIVE) 06/04/19 17:45 Urine RBC 3-5 /HPF (0-3) A 06/04/19 17:45 Urine WBC 3-5 /HPF (0-5) 06/04/19 17:45 Ur Squamous Epith Cells Few /HPF (NEGATIVE) 06/04/19 17:45 Amorphous Sediment 1+ /HPF (NEGATIVE) 06/04/19 17:45 Urine Bacteria Trace /HPF (NEGATIVE) 06/04/19 17:45 Hyaline Casts Few /LPF (NEGATIVE) 06/04/19 17:45 Urine Mucus Few /HPF (NEGATIVE) 06/04/19 17:45 Ur Culture Indicated? 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
[2019-06-07 21:28] LABS: CKMB % 1.9 % (<4); CREATINE KINASE MB 1.7 ng/mL (0-4.0)
[2019-06-08] MEDS: NS 1000 ML 1,000 ML IV SCH (03:49)
[2019-06-08 05:33] LABS: BASOPHILS # (AUTO) 0.1 X10^3/uL (0.0-0.1); BASOPHILS % (AUTO) 0.7 % (0.2-1.0); EOSINOPHILS # (AUTO) 0.6 x10^3/uL (0.0-0.2); EOSINOPHILS % (AUTO) 7.4 % (0.9-2.9); HEMATOCRIT 40.4 % (42.0-54.0); HEMOGLOBIN 14.1 g/dL (13.5-18.0); LYMPHOCYTES % (AUTO) 13.3 % (21.0-51.0); MEAN CORPUSCULAR HEMOGLOBIN 32.8 pg (27.0-34.0); MEAN CORPUSCULAR HGB CONC 34.8 g/dL (33.0-35.0); MEAN CORPUSCULAR VOLUME 94.4 fL (80.0-100.0); MEAN PLATELET VOLUME 8.1 fL (7.4-11.0); MONOCYTES # (AUTO) 0.7 x10^3/uL (0.3-0.8); MONOCYTES % (AUTO) 9.5 % (0.0-13.0); NEUTROPHILS # (AUTO) 5.5 x10^3/uL (2.2-4.8); NEUTROPHILS % (AUTO) 69.1 % (42.0-75.0); PLATELET COUNT 259 X10^3/uL (150.0-450.0); RED BLOOD COUNT 4.28 X10^6/uL (4.7-6.0); RED CELL DISTRIBUTION WIDTH 12.9 % (11.6-16.5); WHITE BLOOD COUNT 7.9 X10^3/uL (3.6-10.0)
[2019-06-08] MEDS: DUONEB 0.5 MG/3 MG IN SCH (05:43)
[2019-06-08 05:47] LABS: ALANINE AMINOTRANSFERASE 20 Units/L (12-78); ALBUMIN 2.6 g/dL (3.4-5.0); ALKALINE PHOSPHATASE 116 Units/L (46-116); ASPARTATE AMINO TRANSFERASE 20 Units/L (15-37); BLOOD UREA NITROGEN 27 mg/dL (7-18); CALCIUM 8.4 mg/dL (8.5-10.1); CARBON DIOXIDE 22.7 mmol/L (21-32); CHLORIDE 105 mmol/L (98-107); COR CA(FOR HYPOALB) 9.5 mg/dL (8.5-10.1); CREATININE 1.84 mg/dL (0.70-1.30); SODIUM 139 mmol/L (136-145); TOTAL PROTEIN 6.7 g/dL (6.4-8.2); eGFR NON BLACK RACES 38 (>60)
[2019-06-08] MEDS: TYLENOL 325 MG TAB PO PRN (07:29)
[2019-06-08] MEDS: SINGULAIR TAB 10 MG PO SCH (09:32)
[2019-06-08] MEDS: COLACE CAP 100 MG PO SCH (09:32)
[2019-06-08] MEDS: CRESTOR TAB 10 MG PO SCH (09:33)
[2019-06-08] MEDS: LASIX PO SCH (09:34)
[2019-06-08] MEDS: COREG TAB 6.25 MG PO SCH (09:35)
[2019-06-08] MEDS: PLAVIX PO SCH (09:36)
[2019-06-08] MEDS: ZETIA TAB 10 MG PO SCH (09:37)
[2019-06-08] MEDS: MILK OF MAGNESIA PO SCH (09:38)
[2019-06-08] MEDS: MIRALAX POWDER (1 DOSE 17 G) PO SCH (09:39)
[2019-06-08] MEDS ORDERED: NORVASC TAB 5 MG PO SCH (10:00)
[2019-06-08] MEDS ORDERED: COZAAR PO SCH (10:00)
[2019-06-08] MEDS: SYNTHROID 50 mcg TAB PO SCH (10:27)
[2019-06-08] MEDS: ZyrTEC TAB 10 MG PO SCH (10:28)
[2019-06-08 13:07] VITALS: BP 178/92
== END 2019-06-08 13:45 | disposition home or self-care (01) | DRG 305 ==
LOC: ER 11:29 → MED/SURG 15:23
PROVIDERS: ADMIT Internal Medicine; ATTEND Internal Medicine
DX: R09.82 Postnasal drip; Z79.01 Long term (current) use of anticoagulants; Z79.4 Long term (current) use of insulin; N17.9 Acute kidney failure, unspecified; I16.0 Hypertensive urgency; N18.9 Chronic kidney disease, unspecified; W19.XXXA Unspecified fall, initial encounter; J44.9 Chronic obstructive pulmonary disease, unspecified; E11.65 Type 2 diabetes mellitus with hyperglycemia; Z99.81 Dependence on supplemental oxygen; R51 Headache; E03.8 Other specified hypothyroidism; I13.10 Hypertensive heart and chronic kidney disease without heart failure, with stage 1 through stage 4 chronic kidney disease, or unspecified chronic kidney disease; K21.9 Gastro-esophageal reflux disease without esophagitis; R94.31 Abnormal electrocardiogram [ECG] [EKG]; I25.10 Atherosclerotic heart disease of native coronary artery without angina pectoris; K59.00 Constipation, unspecified; R41.82 Altered mental status, unspecified; E11.22 Type 2 diabetes mellitus with diabetic chronic kidney disease
CPT/HCPCS: 36415; 70450; 72170; 74022; 76770; 80048; 80053; 81001; 82009; 82550; 82553; 84484; 85025; 85610; 93005; 94640; 94760; 96365; 96367; 96374; 96375; 99284; A4222; C9113; J0360; J1650; J1815; J1817; J2405; J3490; J7030; J7040; J7620